=== PATIENT | female | born 1970 | race Caucasian/White ===

== ENCOUNTER 2017-04-24 11:15 | Emergency (ER) | payer BC ==
[~2017-04-24] VITALS: Ht 157.5 cm; Wt 96.8 kg
[~2017-04-24 11:15] MED LIST: CYMBALTA60 MG; LEVOTHROID300 MCG PO; LEVOTHYROXINE200 MC1; LIDODERM 5% P1 PATCH; LIDODERM 5% P1 PATCH PO; TOPRIMATE PO; WELLBUTRIN SR100 MG
[2017-04-24 11:57] LABS: ADD MIUA? YES; BILIRUBIN NEGATIVE; BLOOD SMALL; COLOR AMBER ((YELLOW)); GLUCOSE (STRIP) NEGATIVE; KETONES NEGATIVE; LEUKOCYTES LARGE; NITRITE POSITIVE; PROTEIN (STRIP) NEGATIVE; SPECIFIC GRAVITY 1.021 (1.000-1.030)
[2017-04-24 12:05] LABS: BACTERIA RARE /HPF; CALCIUM OXALATE CRYSTALS 3+ /HPF; EPITHELIAL CELLS 2+ /HPF; MUCUS TRACE /LPF; UCUL ADDED? YES
[2017-04-24 12:40] LABS: HEMATOCRIT 41.5 % (36.0-46.0); MCH 29.6 PG (29.0-34.0); MCHC 33.3 G/DL (30.0-36.0); MCV 89.1 FL (83-99); MEAN PLAT.VOLUME 10.6 uM^3 (9.5-12.4); PLATELET COUNT 216 K/uL (156-360); RBC DIS.WIDTH-SD 42.3 % (39-53); RED BLOOD COUNT 4.66 M/uL (3.80-5.20); WHITE BLOOD COUNT 5.9 K/uL (4.1-10.2)
[2017-04-24 12:48] LABS: CHLORIDE 108 mEq/L (99-109); SODIUM 139 mEq/L (136-147)
[2017-04-24 12:50] LABS: GLUCOSE 97 mg/dL (70-99)
[2017-04-24 12:51] LABS: ANION GAP 8 MEQ/L (2-14)
[2017-04-24 12:52] LABS: TOTAL BILIRUBIN 0.7 mg/dL (0.0-1.0)
[2017-04-24 12:53] LABS: ALKALINE PHOSPHATASE 146 IU/L (3-129)
[2017-04-24 12:54] LABS: GFR ESTIMATE (CALCULATED) > 59 mL/min/
[2017-04-24 12:55] LABS: UREA NITROGEN (BUN) 15 mg/dL (9-23)
[2017-04-24 13:02] LABS: QUANTITATIVE HCG < 4.0 MIU/ML
[2017-04-24] MEDS ORDERED: KEFLEX500 MG PO (14:25)
[2017-04-24] MEDS ORDERED: PYRIDIUM200 MG PO (14:25)
[2017-04-24 14:53] VITALS: BP 143/73
== END 2017-04-24 14:53 | disposition home or self-care (01) ==
LOC: EME 11:15
DX: N39.0 Urinary tract infection, site not specified (principal); Z87.440 Personal history of urinary (tract) infections; M79.7 Fibromyalgia; E11.9 Type 2 diabetes mellitus without complications; E03.9 Hypothyroidism, unspecified; F32.9 Major depressive disorder, single episode, unspecified; Z88.5 Allergy status to narcotic agent
CPT/HCPCS: 76857; 80053; 81003; 84702; 85027; 87086; 99281; 99283